=== PATIENT | female | born 1960 | race African-American/Black ===

== ENCOUNTER 2024-07-29 04:16 | Emergency (ER) | payer MEDICARE ==
[~2024-07-29] VITALS: Ht 160 cm; Wt 100.0 kg
[2024-07-29 05:32] VITALS: TEMP 98
[2024-07-29 06:11] LABS: BASOPHILS # (AUTO) 0.1 X10'3 (0-0.2); BASOPHILS % (AUTO) 0.9 % (0-1); EOSINOPHILS # (AUTO) 0.2 X10'3 (0-0.9); EOSINOPHILS % (AUTO) 2.7 % (0-6); HEMATOCRIT 41.6 % (35.0-45.0); HEMOGLOBIN 13.7 g/dl (12.0-16.0); LYMPHOCYTES # (AUTO) 1.9 X10'3 (1.1-4.8); LYMPHOCYTES % (AUTO) 32.5 % (21-51); MEAN CORPUSCULAR HEMOGLOBIN 29.9 PG (27.0-31.0); MEAN CORPUSCULAR VOLUME 90.6 FL (78-98); MEAN PLATELET VOLUME 7.7 FL (7.4-10.4); MONOCYTES # (AUTO) 0.5 X10'3 (0-0.9); MONOCYTES % (AUTO) 8.5 % (2-12); NEUTROPHILS # (AUTO) 3.2 X10'3 (1.8-7.7); NEUTROPHILS % (AUTO) 55.4 % (42-75); PLATELET COUNT 270 X10'3 (140-440); RED BLOOD COUNT 4.58 X10'6 (4.20-5.60); RED CELL DISTRIBUTION WIDTH 14.4 % (11.5-14.5); WHITE BLOOD COUNT 5.7 X10'3 (4.5-11.0)
[2024-07-29 06:29] LABS: ALANINE AMINOTRANSFERASE 31 U/L (12-78); ALBUMIN/GLOBULIN RATIO 0.6 (1.1-1.5); ALKALINE PHOSPHATASE 79 IU/L (46-116); ANION GAP 9 (8-16); ASPARTATE AMINO TRANSFERASE 19 U/L (10-37); BILIRUBIN,TOTAL 0.3 MG/DL (0.1-1.0); BLOOD UREA NITROGEN 12 MG/DL (7-18); BUN/CREATININE RATIO 14.8 (10.0-20.0); CHLORIDE 107 MMOL/L (99-107); CREATININE 0.81 MG/DL (0.40-0.90); GLUCOSE 96 MG/DL (70-104); POTASSIUM 3.5 MMOL/L (3.5-5.1); SODIUM 142 MMOL/L (135-145); TOTAL CARBON DIOXIDE 26.3 MMOL/L (24-32); TOTAL PROTEIN 7.9 G/DL (6.4-8.2); eCRCL 57 ML/MIN; eGFR 86 ML/MIN
[2024-07-29 06:38] LABS: CREATINE KINASE 87 U/L (26-192); PRO BRAIN NATRIURETIC PEPTIDE 30 PG/ML (0-125)
[2024-07-29 07:06] LABS: C-REACTIVE PROTEIN 0.95 MG/DL (0.0-0.5)
[2024-07-29 10:33] VITALS: BP 116/75; PULSE 64; RESP 16; O2SAT 99
== END 2024-07-29 10:34 | disposition home or self-care (01) ==
LOC: ER 04:17
DX: M25.562 Pain in left knee (principal)
CPT/HCPCS: 36415; 71045; 72170; 73560; 80053; 82550; 83880; 84484; 85025; 85651; 86140; 93005; 99285

== ENCOUNTER 2024-10-07 07:00 | Emergency (ER) | payer MEDICARE ==
[~2024-10-07] VITALS: Ht 157.5 cm; Wt 97.0 kg
[2024-10-07 07:03] VITALS: TEMP 97.3
--- NOTE | 2024-10-07 07:11 | ELECTROCARDIOGRAPH REPORT ---
[facility] Test Date: 2024-10-07 Test Time: 07:08:18 Pat Name: FRANCOIS POOLE Department: [facility] Patient ID: [facility]-[id number] Room: Gender: F Apartment Locator: : 1960 Requested By: ISI CLAROS Order Number: [id number] Reading MD: Humza Kirk Measurements Intervals [place] Rate: 84 P: 64 [place]: 159 QRS: 48 QRSD: 83 T: 21 QT: 370 QTc: 438 Interpretive Statements Sinus rhythm Biatrial enlargement Electronically Signed On 10-07-2024 8:10:16 PDT by Humza Kirk Please click the below link to view image of tracing.
[2024-10-07 07:35] LABS: BASOPHILS % (AUTO) 0.4 % (0-1); EOSINOPHILS # (AUTO) 0.3 X10'3 (0-0.9); EOSINOPHILS % (AUTO) 4.5 % (0-6); HEMATOCRIT 39.1 % (35.0-45.0); LYMPHOCYTES # (AUTO) 1.2 X10'3 (1.1-4.8); LYMPHOCYTES % (AUTO) 21.9 % (21-51); MEAN CORPUSCULAR HEMOGLOBIN 29.5 PG (27.0-31.0); MEAN CORPUSCULAR HGB CONC 33.3 g/dL (33.0-36.5); MEAN CORPUSCULAR VOLUME 88.7 FL (78-98); MEAN PLATELET VOLUME 7.8 FL (7.4-10.4); MONOCYTES # (AUTO) 0.7 X10'3 (0-0.9); MONOCYTES % (AUTO) 12.4 % (2-12); NEUTROPHILS # (AUTO) 3.5 X10'3 (1.8-7.7); NEUTROPHILS % (AUTO) 60.8 % (42-75); PLATELET COUNT 251 X10'3 (140-440); RED BLOOD COUNT 4.41 X10'6 (4.20-5.60); RED CELL DISTRIBUTION WIDTH 14.3 % (11.5-14.5); WHITE BLOOD COUNT 5.7 X10'3 (4.5-11.0)
--- NOTE | 2024-10-07 07:43 | RADIOLOGY REPORT ---
CHEST RADIOGRAPH Indication: CP Technique: Single frontal view of the chest was obtained COMPARISON: DI CHEST,SINGLE VIEW on DOS: 07/29/24 FINDINGS: Lines and Tubes: None Lungs: Clear Pleura: No effusion. No pneumothorax. Cardiomediastinal contours: Unremarkable Bones: Unremarkable IMPRESSION: No acute disease.
[2024-10-07 07:58] LABS: ALBUMIN 3.2 G/DL (3.4-5.0); ANION GAP 10 (8-16); BLOOD UREA NITROGEN 13 MG/DL (7-18); BUN/CREATININE RATIO 14.4 (10.0-20.0); CALCIUM 9.1 MG/DL (8.5-10.1); CHLORIDE 107 MMOL/L (99-107); GLUCOSE 98 MG/DL (70-104); POTASSIUM 3.6 MMOL/L (3.5-5.1); PRO BRAIN NATRIURETIC PEPTIDE 69 PG/ML (0-125); SODIUM 143 MMOL/L (135-145); TOTAL CARBON DIOXIDE 25.6 MMOL/L (24-32); eCRCL 49 ML/MIN; eGFR 76 ML/MIN
[2024-10-07] MEDS ORDERED: nitroGLYCERIN 0.4mg SUBLingual tab SL PRN (09:30)
--- NOTE | 2024-10-07 10:23 | Physician Documentation ---
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 Pain increases with coughing, but pain also feels similar to prior fibromyalgia flares. She did take a COVID test 2 days ago which was negative. Mother has had similar symptoms that began prior to hers. She denies fevers, chills, vomiting, or diarrhea. She denies history of asthma. Medication Reconciliation Allergies: Coded Allergies: No Known Allergies (Unverified , 10/07/24) Scheduled Azithromycin (Zithromax), 1 TAB PO UD Scheduled PRN Codeine Phosphate/Guaifenesin (Guaifen-Codeine 200-20 mg/10Ml), 5 ML PO Q6H PRN PRN for cough and congestion ONDANSETRON ODT 4mg tablet (Ondansetron Odt), 1 TAB PO Q6H PRN PRN for nausea/vomiting Past Medical History Past Medical History: Sinusitis, Pneumonia, Fibromyalgia Past Surgical History: no surgical history Alcohol Use: None Drug Use: none Lives In: Home Review of Systems All Other Systems at this time: Reviewed and Negative ROS As stated above in the HPI, otherwise all systems are reviewed and negative. Physical Exam Vital Signs: RN Vital Signs have been reviewed: Yes, Temperature: 97.3, Source: Temporal, Heart Rate: 77, Respiratory Rate: 16, BP: 130/74, Pulse Oximetry: 98, Weight: 97.050 Oxygen Flow Rate: 0 Pulse Oximetry Reflects: adequate oxygenation Physical Exam General: The patient is well developed, well nourished, nontoxic appearing and is in no acute distress. Skin: [place], warm and dry with no rashes. HEENT: + nasal congestion. Head was normocephalic and atraumatic. Eyes - pupils equal, round, reactive to light and accommodation. Extraocular movements were intact. Conjunctivae were nonicteric. The mouth and oropharynx were clear with moist mucous membranes. There were no pharyngeal exudates or erythema. Chest: Clear to auscultation bilaterally without wheezes, rales or rhonchi. No accessory muscle use. No dullness to percussion. Heart: Rate regular and rhythmic. S1, S2. No murmurs. Palpation of the chest wall was normal. No rubs or thrills. Abdomen: Soft, nontender and nondistended. Positive bowel sounds. No guarding or rebound. Extremities: No cyanosis, clubbing or edema. The patient moves all extremities. Pulses were equal and symmetric. Neurologic: Cranial nerves II-XII were grossly intact. Sensation was intact to light touch throughout. Moves all extremities equally. Psychologic: The patient was oriented to person, place and time. The patient demonstrated appropriate judgement and insight. Progress Results/Orders Reviewed/noted all lab results: Yes Results/Orders Orders - GRZEGORZ GOMEZ MD Chest,Single View (10/07/24 07:02) Monitor (10/07/24 07:02) Saline Lock (10/07/24 07:02) Oxygen (10/07/24 07:02) Electrocardiogram (10/07/24 07:02) Hs Troponin I W Calculations (10/07/24 10:02) Covid19 Binax Poc Result Entry (10/07/24 07:10) Completed Orders - GRZEGORZ GOMEZ MD Chest,Single View (10/07/24 07:02) Cbc/Diff (10/07/24 07:02) PBNP (10/07/24 07:02) Electrocardiogram (10/07/24 07:02) Hs Troponin I W Calculations (10/07/24 07:02) Hs Troponin I W Calculations (10/07/24 09:02) BMP (10/07/24 07:02) Nitroglycerin Sublingual Tab (Nitrostat (10/07/24 09:30) Aspirin 81mg Chew Tablet (Aspirin 81mg C (10/07/24 09:30) Azithromycin Tablet (Zithromax Tablet) (10/07/24 10:25) Ondansetron Disint. Tablet (Zofran Odt T (10/07/24 10:25) Ketorolac Trometh 15mg/Ml Vial (Toradol (10/07/24 11:15) Normal Saline 1000ml (Sodium Chloride 10 (10/07/24 11:15) Medications Received in ER Medications (Trade) Dose Ordered Sig/Aline Route PRN Reason Start Time Stop Time Status Last Admin Dose Admin (aspirin 81MG chew tablet) 324 mg ONCE ONCE PO 10/07/24 09:30 10/07/24 09:31 DC 10/07/24 11:02 324 MG (Zithromax tablet) 500 mg ONCE ONCE PO 10/07/24 10:25 10/07/24 10:26 DC 10/07/24 11:02 500 MG (Zofran ODT tablet) 4 mg ONCE ONCE PO 10/07/24 10:25 10/07/24 10:26 DC 10/07/24 11:00 4 MG (Toradol injection) 15 mg ONCE ONCE IV 10/07/24 11:15 10/07/24 11:16 DC 10/07/24 11:37 15 MG (sodium chloride 1000ml IV soln) 1,000 ml ONCE ONCE IVB 10/07/24 11:15 10/07/24 11:16 DC 10/07/24 11:36 1,000 ML Vital Signs 10/07/24 10/07/24 10/07/24 10/07/24 07:03 07:43 07:43 11:37 Temp 97.3 Pulse 78 77 Resp 16 16 20 15 B/P (MAP) 148/86 130/74 (92) Pulse Ox 99 98 O2 Flow Rate 0 0 10/07/24 10/07/24 11:39 12:25 Pulse 79 74 Resp 19 17 B/P (MAP) 129/78 (95) 139/76 Pulse Ox 99 100 Laboratory Tests Test 10/07/24 07:08 10/07/24 07:10 10/07/24 08:49 SARS-CoV-2 Antigen (Rapid) Negative White Blood Count 5.7 Red Blood Count 4.41 Hemoglobin 13.0 Hematocrit 39.1 Mean Corpuscular Volume 88.7 Mean Corpuscular Hemoglobin 29.5 Mean Corpuscular Hemoglobin Concent 33.3 Red Cell Distribution Width 14.3 Platelet Count 251 Mean Platelet Volume 7.8 Neutrophils (%) (Auto) 60.8 Lymphocytes (%) (Auto) 21.9 Monocytes (%) (Auto) 12.4 H Eosinophils (%) (Auto) 4.5 Basophils (%) (Auto) 0.4 Neutrophils # (Auto) 3.5 Lymphocytes # (Auto) 1.2 Monocytes # (Auto) 0.7 Eosinophils # (Auto) 0.3 Basophils # (Auto) 0.0 CBC Comment Sodium Level 143 Potassium Level 3.6 Chloride Level 107 Carbon Dioxide Level 25.6 Anion Gap 10 Blood Urea Nitrogen 13 Creatinine 0.90 Estimated GFR/1.73 m2 76 BUN/Creatinine Ratio 14.4 Glucose Level 98 Calcium Level 9.1 Troponin I High Sensitivity 4 5 Pro-B-Type Natriuretic Peptide 69 Albumin 3.2 L Chemistry Comments Troponin I High Sens Percent Delta 25 Troponin I Hi Sens Absolute Change 1 Re-Evaluation Re-Evaluation : Re-Evaluation: Improved Progress Patient was seen and examined. Patient is given reassurance. Patient was having aches pains myalgias URI like symptoms. Recent sick contacts. Patient's laboratory work obtained shows a normal CBC which is reassuring as far as infection bacterial etiology no anemia. Patient's chemistries within normal limits as well as negative troponins. Patient is COVID was also negative. Patient received Toradol fluid bolus she had nasal congestion originally she received aspirin and nitro for concerns for chest pain but ultimately was given Zithromax and prescribed the same. Patient is feeling a bit better at time of discharge. She is otherwise in good health has no other complaints at this time. 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 Pulse oximetry monitor interpretation shows normal oxygenation at 98% room air, normal, my interpretation. EKG/XRAY/CT/US/VASC/MRI EKG : Additional Comment Test Date: 2024-10-07 Test Time: 07:08:18 Pat Name: FRANCOIS POOLE Department: [facility] Patient ID: [facility]-[id number] Room: Gender: F Open Cut Examiner: : 1960 Requested By: GRZEGORZ GOMEZ Order Number: [id number] Reading : Humza Kirk Measurements Intervals [place] Rate: 84 P: 64 [place]: 159 QRS: 48 QRSD: 83 T: 21 QT: 370 QTc: 438 Interpretive Statements Sinus rhythm Biatrial enlargement Electronically Signed On 10-07-2024 8:10:16 PDT by Grzegorz Gomez (interpreted by myself) Chest X-Ray : Additional Comments CHEST RADIOGRAPH Indication: CP Technique: Single frontal view of the chest was obtained COMPARISON: DI CHEST,SINGLE VIEW on DOS: 07/29/24 FINDINGS: Lines and Tubes: None Lungs: Clear Pleura: No effusion. No pneumothorax. Cardiomediastinal contours: Unremarkable Bones: Unremarkable IMPRESSION: No acute disease. Reviewed by myself (Dr. Gomez) Medical Decision Making Additional info obtained from: old records (seen in July for knee pain, no prior admissions) Differential Dx:Considerations: Include: Allergic rhinitis, Influenza, Otitis media, Pharyngitis-Viral, Pneumonia, Pnuemonitis, Sinusitis, URI, Other Departure Time of Disposition: 10:23 Disposition: HOME / SELF CARE / HOMELESS Impression: Primary Impression: URI (upper respiratory infection) Qualified Codes: J06.9 - Acute upper respiratory infection, unspecified Condition: Stable Discharge Instructions: Upper Respiratory Infection, Adult Additional Instructions: Take medications as prescribed. Rest. Return to the ER for any other concerns. Prescriptions Azithromycin (Zithromax) 250 Mg Tablet 1 TAB PO UD for 4 Days, #4 TAB 2 the first day followed by 1 for days 2-5 Prov: GRZEGORZ GOMEZ MD 10/07/24 Codeine Phosphate/Guaifenesin (Guaifen-Codeine 200-20 mg/10Ml) 20 Mg-200 Mg/10 Ml Liquid 5 ML PO Q6H PRN PRN for cough and congestion for 6 Days, #120 ML 0 Refills Prov: GRZEGORZ GOMEZ MD 10/07/24 ONDANSETRON ODT 4mg tablet (ONDANSETRON ODT) 4 Mg Tab.rapdis 1 TAB PO Q6H PRN PRN for nausea/vomiting for 4 Days, #16 TAB 0 Refills Prov: GRZEGORZ GOMEZ MD 10/07/24 Education Educated: Patient Educated regarding: diagnosis, treatment, need for follow up Signature Scribe Signature: Scribed for Grzegorz Gomez MD by Micki Judd . 10/07/24 10:23 Attestation: The note accurately reflects work and decisions made by me.Grzegorz Gomez MD 10/07/24 10:22 GRZEGORZ GOMEZ MD Oct 07, 2024 10:22 MICKI YODER Oct 07, 2024 10:30
[2024-10-07] MEDS ORDERED: ONDA-243 PO (10:25)
[2024-10-07] MEDS ORDERED: CODE10LI2 PO (10:26)
[2024-10-07] MEDS ORDERED: AZIT250T89 PO (10:30)
[2024-10-07] MEDS: ondansetron 4mg rapidly disintigrating tab PO ONE (11:00)
[2024-10-07] MEDS: aspirin 81mg tab.chew PO ONE (11:02)
[2024-10-07] MEDS: azithromycin 250mg tablet PO ONE (11:02)
[2024-10-07] MEDS: normal saline 1000ML IV soln IVB ONE (11:36)
[2024-10-07] MEDS: ketorolac trometh 15mg/ml vial 15 MG/ML ML IV ONE (11:37)
[2024-10-07 12:25] VITALS: BP 139/76; PULSE 74; RESP 17; O2SAT 100
== END 2024-10-07 12:33 | disposition home or self-care (01) ==
LOC: ER 07:01
DX: J06.9 Acute upper respiratory infection, unspecified (principal); R06.02 Shortness of breath; M79.7 Fibromyalgia; Z20.822 Contact with and (suspected) exposure to COVID-19
CPT/HCPCS: 36415; 71045; 80048; 83880; 84484; 85025; 87811; 93005; 96361; 96374; 99285; J1885; J7030

== ENCOUNTER 2024-12-18 15:20 | Outpatient (CLI) | payer BC, MEDICARE ==
[~2024-12-18 15:20] MED LIST: CODE10LI2 PO; ONDA-243 PO
[2024-12-18 16:08] LABS: MEAN PLATELET VOLUME 7.9 FL (7.4-10.4); RED CELL DISTRIBUTION WIDTH 14.5 % (11.5-14.5)
[2024-12-18 16:28] LABS: CHOL/HDL RATIO 3.3 (0.00-4.99); CREATININE 0.80 MG/DL (0.40-0.90); LDL CHOLESTEROL 135 MG/DL (50-100); TOTAL CARBON DIOXIDE 26.2 MMOL/L (24-32); eGFR 87 ML/MIN
[2024-12-18 16:54] LABS: % IRON SATURATION 14 % (11-46)
[2024-12-19 07:19] LABS: LEUKOCYTE ESTERASE ,URINE NEGATIVE (Neg); NITRITES, URINE NEGATIVE (Neg); OCCULT BLOOD,URINE NEGATIVE (Neg)
[2024-12-19 07:26] LABS: UA COLLECTION TYPE NON-SPECIFIED
== END 2024-12-18 23:59 | disposition home or self-care (01) ==
LOC: RAD 15:20
PROVIDERS: ATTEND Nurse Practitioner Family
DX: M79.7 Fibromyalgia (principal); E78.49 Other hyperlipidemia; R53.83 Other fatigue; Z76.89 Persons encountering health services in other specified circumstances
CPT/HCPCS: 80053; 80061; 81003; 82607; 82746; 83540; 83550; 84439; 84443; 85025; 86038; 86140

== ENCOUNTER 2024-12-30 18:52 | Emergency (ER) | payer BC, MEDICARE ==
[~2024-12-30] VITALS: Ht 157.5 cm; Wt 91.4 kg
[~2024-12-30 18:52] MED LIST changes: +ALPR0.255; +CIPR-458 PO; +LACT1CAP26 PO; +METO5TAB85 PO; +METR-159 PO; -ONDA-243 PO
[2024-12-30 18:54] VITALS: BP 131/78; PULSE 79; TEMP 98.9; O2SAT 99
[2024-12-30 19:14] LABS: MEAN PLATELET VOLUME 7.7 FL (7.4-10.4); RED CELL DISTRIBUTION WIDTH 14.1 % (11.5-14.5)
--- NOTE | 2024-12-30 19:14 | ELECTROCARDIOGRAPH REPORT ---
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
--- NOTE | 2024-12-30 19:34 | RADIOLOGY REPORT ---
EXAM: DI CHEST,SINGLE VIEW HISTORY: CP TECHNIQUE: 1 view of the chest COMPARISON: DI CHEST,SINGLE VIEW on DOS: 10/07/24 FINDINGS/IMPRESSION: LUNGS: No pleural effusion, consolidation, or pneumothorax MEDIASTINUM: Normal cardiac size. Mediastinal calcified lymph nodes BONES: No acute osseous abnormality OTHER: None
[2024-12-30 19:38] LABS: CREATININE 1.06 MG/DL (0.40-0.90); PRO BRAIN NATRIURETIC PEPTIDE 60 PG/ML (0-125); TOTAL CARBON DIOXIDE 27.1 MMOL/L (24-32); eCRCL 41 ML/MIN; eGFR 63 ML/MIN
[2024-12-30 20:41] VITALS: RESP 18
--- NOTE | 2024-12-30 21:00 | Physician Documentation ---
History of Present Illness ~ Chief Complaint: Abdominal Pain Stated Complaint: NAUSEA Time Seen by MD: 20:52 Primary Medical Doctor: RAIZA Mode of Arrival: POV HPI Patient presents to the emergency room with chronic abdominal pain that has well as nausea. She was admitted here recently and had colonoscopy performed which was largely benign. Currently being treated for diverticulitis on Cipro Flagyl. Medication Reconciliation Allergies: Coded Allergies: No Known Allergies (Unverified , 12/21/24) Scheduled Ciprofloxacin HCl (Ciprofloxacin HCl), 1 TAB PO BID Lactobacillus Rhamnosus (Culturelle), 1 EACH PO BID Metoclopramide HCl (Reglan), 1 TAB PO Q8H Metronidazole* (Flagyl*), 1 TAB PO BID Scheduled PRN Alprazolam (Alprazolam), BID PRN for anxiety, (Reported) Codeine Phosphate/Guaifenesin (Guaifen-Codeine 200-20 mg/10Ml), 5 ML PO Q6H PRN PRN for cough and congestion Discontinued Medications ONDANSETRON ODT 4mg tablet (Ondansetron Odt), 1 TAB PO Q6H PRN PRN for nausea/vomiting Past Medical History Past Medical History: Sinusitis, Pneumonia, Fibromyalgia Past Surgical History: no surgical history Alcohol Use: None Drug Use: none Lives In: Home Review of Systems ROS All review of systems negative except as per HPI Physical Exam Vital Signs: Temperature: 98.9, Source: Oral, Heart Rate: 79, Respiratory Rate: 18, BP: 131/78, Pulse Oximetry: 99, Weight: 91.400 Physical Exam General: Patient is awake, alert, oriented x4 in no acute distress Head: Normocephalic and atraumatic. Eyes: Conjunctival normal. EOMI. PERRL. ENT: Mucous membranes moist. Neck: Supple, trachea is midline. Chest: Clear to auscultation bilaterally without rales, rhonchi, or wheezes. There is no accessory muscle use or retractions. Cardiac: RRR without murmurs, gallops, or rubs. Abd: Soft, nondistended, diffuse abdominal tenderness without peritonitis Progress Results/Orders Results/Orders Orders - VICK NAZARIO MD Chest,Single View (12/30/24 19:16) Monitor (12/30/24 19:02) Saline Lock (12/30/24 19:02) Oxygen (12/30/24 19:02) Hs Troponin I W Calculations (12/30/24 21:02) Hs Troponin I W Calculations (12/30/24 22:02) Urinalysis, Cult If Indicated (12/30/24 19:02) Promethazine Tablet (Phenergan Tablet) (12/30/24 21:10) Completed Orders - VICK NAZARIO MD Chest,Single View (12/30/24 19:16) Cbc/Diff (12/30/24 19:02) BMP (12/30/24 19:02) PBNP (12/30/24 19:02) Electrocardiogram (12/30/24 19:02) Hs Troponin I W Calculations (12/30/24 19:02) Lipase (12/30/24 19:02) Vital Signs 12/30/24 12/30/24 18:54 20:41 Temp 98.9 Pulse 79 Resp 16 18 B/P (MAP) 131/78 Pulse Ox 99 Laboratory Tests Test 12/30/24 19:07 12/30/24 20:46 White Blood Count 7.1 Red Blood Count 4.42 Hemoglobin 13.1 Hematocrit 38.9 Mean Corpuscular Volume 88.0 Mean Corpuscular Hemoglobin 29.5 Mean Corpuscular Hemoglobin Concent 33.6 Red Cell Distribution Width 14.1 Platelet Count 297 Mean Platelet Volume 7.7 Neutrophils (%) (Auto) 53.1 Lymphocytes (%) (Auto) 31.3 Monocytes (%) (Auto) 12.1 H Eosinophils (%) (Auto) 2.2 Basophils (%) (Auto) 1.3 H Neutrophils # (Auto) 3.7 Lymphocytes # (Auto) 2.2 Monocytes # (Auto) 0.9 Eosinophils # (Auto) 0.2 Basophils # (Auto) 0.1 CBC Comment Sodium Level 138 Potassium Level 3.6 Chloride Level 103 Carbon Dioxide Level 27.1 Anion Gap 8 Blood Urea Nitrogen 8 Creatinine 1.06 H Estimated GFR/1.73 m2 63 BUN/Creatinine Ratio 7.5 L Glucose Level 90 Calcium Level 9.2 Troponin I High Sensitivity 5 Pro-B-Type Natriuretic Peptide 60 Albumin 3.3 L Lipase 73 Chemistry Comments Medical Decision Making Findings Patient presented to the emergency room with continued chronic abdominal pain and concerns for possible small bowel obstruction. Differentials include but are not limited to dehydration, electrolyte disturbances, intra-abdominal infection therefore emergent labs ordered which were reassuring. Given patient's reassuring labs that has well as history and he had not feel that has in patient's best interest for CT scan as I believe radiation exposure at this juncture risk outweighs any benefit especially in the light of recent workup. Her main concern is nausea. She has a Zofran and Reglan that has requesting Phenergan. I will provide her a prescription for this. ER precautions discussed. Departure Disposition: HOME / SELF CARE / HOMELESS Impression: Primary Impression: Abdominal pain Condition: Stable Discharge Instructions: Abdominal Pain (Nonspecific) Referrals: NO PRIMARY CARE PROVIDER (PCP) Prescriptions Promethazine HCl (Promethazine HCl) 25 Mg Tablet 1 TAB PO Q6H PRN PRN for nausea/vomiting for 5 Days, #20 TAB Prov: VICK NAZARIO MD 12/30/24 Education Educated: Patient Educated regarding: diagnosis, treatment, need for follow up Signature Scribe Signature: no scribe Attestation: The note accurately reflects work and decisions made by me.Vick Nazario MD 12/30/24 21:15 VICK NAZARIO MD Dec 30, 2024 21:00
[2024-12-30] MEDS ORDERED: PROM25TA14 PO (21:15)
== END 2024-12-30 22:00 | disposition home or self-care (01) ==
LOC: ER 18:53
DX: R10.84 Generalized abdominal pain (principal); R11.0 Nausea; M79.7 Fibromyalgia; Z79.899 Other long term (current) drug therapy
CPT/HCPCS: 36415; 71045; 80048; 83690; 83880; 84484; 85025; 93005; 99285; Q0169